=== PATIENT | female | born 1965 | race Asian ===

== ENCOUNTER 2018-11-14 08:21 | Emergency (ER) | payer OTHER ==
[~2018-11-14] VITALS: Ht 147.3 cm; Wt 69.0 kg
[2018-11-14 08:27] VITALS: BP 190/117
[2018-11-14] MEDS ORDERED: ketorolac trometh inj. 60 MG/2 ML VIAL IM ONE (09:10)
[2018-11-14] MEDS ORDERED: PRED20TA PO (09:15)
[2018-11-14] MEDS ORDERED: ACET-3067 PO (09:15)
== END 2018-11-14 09:38 | disposition home or self-care (01) ==
LOC: ER 08:23
DX: M54.41 Lumbago with sciatica, right side (principal); I10 Essential (primary) hypertension; Z79.899 Other long term (current) drug therapy; Z86.73 Personal history of transient ischemic attack (TIA), and cerebral infarction without residual deficits; X58.XXXA Exposure to other specified factors, initial encounter; Y93.89 Activity, other specified; Y92.810 Car as the place of occurrence of the external cause; Y99.8 Other external cause status
CPT/HCPCS: 96372; 99283; J1885